=== PATIENT | female | born 1950 | race African-American/Black ===

== ENCOUNTER 2017-01-30 21:51 | Inpatient (IN) | payer OTHER ==
--- NOTE | ~2017-01-30 | DS ---
Discharge Summary [facility] [address] [facility] [place]. [address] NAME: ISELA WALTON : 48 STATUS : DIS Zenon PAT#: [id number] AGE: 66 ADM/REG DATE : 01/30/17 MR#: [id number] REPORT SERV DATE: 02/05/17 DICTATED BY: VICKI HANLEY DATE: 02/04/17 REPORT STATUS : Draft TRANSCRIBED BY: MODChiqui DATE: 02/04/17 ADMISSION DATE: 01/30/2017 DISCHARGE DATE: 02/04/2017 CONSULTATION: 1. General Surgery, Dr. Wilmer Silveira. 2. Dr. Carson Mejia. 3. [facility]. PROCEDURES: Left dorsal foot blister, which was drained, dressed, and clean dressing applied. DISCHARGE DIAGNOSES: 1. Left dorsal foot blister. 2. Left total cellulitis. 3. Acute kidney injury on chronic kidney disease stage 3. 4. Nephrolithiasis. 5. Hypertension. 6. Diabetes mellitus. 7. Hyperlipidemia. 8. Chronic back pain. 9. Diastolic heart failure. 10.History of cerebrovascular accident. 11.Rheumatoid arthritis. 12.Lupus erythematosus. 13.Fibromuscular dysplasia. DISCHARGE CONDITION: Stable. HISTORY OF PRESENT ILLNESS: In summary, this is a 66-year-old female with medical history of insulin-dependent diabetes mellitus type 2, chronic kidney disease stage 3, hypertension, hyperlipidemia, who presented to the hospital with left third toe pain and left dorsal foot blister. In the ER, vital signs, temperature was 98.1, pulse was 66, respiratory rate 16, saturating 91% on room air, and blood pressure was 145/68. Physical exam was significant for a 3 x 6 cm blister on the dorsum of the distal portion of the left foot and also noted slightly edematous and erythematous and tender area around the third toe. An assessment of the left third toe cellulitis and left dorsal foot blister as well as acute kidney injury on chronic kidney disease was made in the ER, and the patient was admitted to the Hospitalist Service. HOSPITAL COURSE: 1. Left toe cellulitis with left dorsal foot blister. The patient was started on broad- spectrum antibiotics with vancomycin and Zosyn. The patient's white blood cell gradually trended down back to within normal range. General Surgery was consulted to perform drainage of the left dorsal foot blister with dry dressing applied. The Discharge Summary [facility] [address] [place]. [address] NAME: ISELA WALTON : 49 STATUS : DIS Zenon PAT#: [id number] AGE: 66 ADM/REG DATE : 01/30/17 MR#: [id number] REPORT SERV DATE: 02/05/17 DICTATED BY: VICKI HANLEY DATE: 02/04/17 REPORT STATUS : Draft TRANSCRIBED BY: CHI DATE: 02/04/17 patient was subsequently transitioned from IV antibiotics to p.o. antibiotics and was advised to continue p.o. antibiotics to complete a total of 14 days therapy. The patient was advised to continue wound dressing and follow as instructed. Home health care has been ordered to assist the patient with wound dressing at home. The patient was also advised to follow up with primary care physician within one week of discharge. 2. Acute kidney injury on chronic kidney disease. The patient's creatinine on presentation was 2.9 and last known baseline was 1.3. The patient was started on gentle IV fluids. Nephrology was consulted given the patient's repeated episodes of acute kidney injury. Renal ultrasound was done that shows bilateral stones, which were known obstruction. The patient's creatinine gradually trended down to 2.3 at the time of discharge. The patient was advised to follow up with Nephrology as an outpatient and increased fluid intake. 3. Bilateral nephrolithiasis. The patient had an ultrasound that confirmed the presence of bilateral renal stones which shows the presence of 2 known obstructing stones measuring 7 mm and 6 mm in the right kidney. Nephrology was consulted. Recommended to continue IV fluid hydration and order a repeat CT. The CT of the abdomen was done that showed the stone had been reduced in size to 2 mm. Continue medical therapy given patient's comorbities at the time of presentation and also given the significantly improved renal function. The patient was advised to continue follow up with Nephrology as an outpatient and to follow up with primary physician. 4. Diabetes mellitus. The patient's blood sugar was controlled throughout the course of this admission with subcutaneous insulin. The patient was advised to continue home dose of insulin at the time of discharge. 5. Lupus erythematosus. No evidence of acute flare during the course of this admission. C3-C4 ESR and CRP were essentially within normal range. The patient was advised to continue follow up with her primary dough raiser as an outpatient. IMAGING: Renal ultrasound. Impression: 1. Two small cysts and 2 obstructing the right kidney. (inaudible) old hematoma. CT abdomen and pelvis. Impression: 1. The patient has borderline retroperitoneal and gastrohepatic ligament adenopathy. The findings were significant. Correlation with patient's clinical history and laboratory values is needed. The length of lymph node is 1.7 x 1.5 cm. 2. Banal appearing thick lesion with .. DISCHARGE MEDICATIONS: 1. Doxycycline 100 mg p.o. b.i.d. 2. Levofloxacin 500 mg p.o. q.24 hours. 3. Aspirin 81 mg. 4. Lipitor 10 mg p.o. daily. 5. Coreg 25 mg p.o. b.i.d. 6. Gabapentin 600 mg t.i.d. 7. Hydrocodone 5/325 p.o. b.i.d. 8. Procardia XL 60 mg p.o. t.i.d. 9. Levemir 40 units subcu b.i.d. 10.Insulin FlexPen. Discharge Summary [address] [address] NAME: ISELA WALTON : 49 STATUS : DIS Zenon PAT#: [id number] AGE: 66 ADM/REG DATE : 01/30/17 MR#: [id number] REPORT SERV DATE: 02/05/17 DICTATED BY: VICKI HANLEY DATE: 02/04/17 REPORT STATUS : Draft TRANSCRIBED BY: MODL DATE: 02/04/17 11.Hydrocodone. 12.Saccharomyces. DISCHARGE FOLLOWUP: 1. To follow up with primary care physician within one to two weeks of discharge. 2. To follow up with Nephrology with one to two weeks of discharge as outpatient. DISCHARGE ACTIVITY: As tolerated. DISCHARGE DIET: 1800 calorie diet. DONO/KAYLEEL Vicki Hanley MD / [id number] CC: MD Charan Stanford MD
--- NOTE | ~2017-01-30 | CN ---
Consultation Report [facility] [address] [facility] [place]. [address] NAME: ISELA WALTON : 48 STATUS : ADM Zenon PAT#: [id number] AGE: 66 ADM/REG DATE : 01/30/17 MR#: [id number] REPORT SERV DATE: 02/02/17 DICTATED BY: LD MEJIA DATE: 02/02/17 REPORT STATUS : Draft TRANSCRIBED BY: MODL DATE: 02/02/17 CONSULTATION DATE OF CONSULTATION: 01/31/2017 REASON FOR CONSULTATION: Nephrolithiasis. HISTORY OF PRESENT ILLNESS: Ms. Walton is a very pleasant 66-year-old female with a history of diabetes, CKD, as well as other comorbidities. She is admitted for a toe cellulitis. As part of her workup for her CKD, she had a renal ultrasound, which showed no hydronephrosis, but some small stones on the right side. She has a history of kidney stones. She has no flank pain. I have been asked to consult given these kidney stones. PAST MEDICAL HISTORY: Insulin-dependent diabetes, hypertension, hyperlipidemia, chronic back pain, degenerative disk disease, diastolic dysfunction, history of stroke, CKD, rheumatoid arthritis, lupus, fibromuscular dysplasia. PAST SURGICAL HISTORY: Left femur ORIF, bilateral total knee replacement, partial thyroidectomy. ALLERGIES: NO KNOWN DRUG ALLERGIES. MEDICATIONS: Reviewed and are on the chart. SOCIAL HISTORY: No smoking, drinking, or illegal drugs. FAMILY HISTORY: Noncontributory. REVIEW OF SYSTEMS: A 12-point review of systems was performed. Pertinent positives are listed in the HPI. PHYSICAL EXAMINATION: VITAL SIGNS: Temperature is 97.3, pulse is in 60s to 70s, blood pressure is in the 130s over 80s, saturating 93% on room air. GENERAL: She is in no acute distress. She appears her stated age. HEENT: Head is normocephalic and atraumatic. LUNGS: Breathing is nonlabored. She is not in respiratory distress. CARDIAC: Pulse is regular in rate and rhythm. ABDOMEN: Soft, nontender, nondistended. There is no CVA tenderness. NEUROLOGIC: She is alert and oriented x3. EXTREMITIES: There is no cyanosis or edema. LABORATORY DATA: White count is 9.8, hemoglobin 10.1. Creatinine is 2.9. Consultation Report [facility] [address] [place]. [address] NAME: ISELA WALTON : 49 STATUS : ADM Zenon PAT#: [id number] AGE: 66 ADM/REG DATE : 01/30/17 MR#: [id number] REPORT SERV DATE: 02/02/17 DICTATED BY: LD MEJIA DATE: 02/02/17 REPORT STATUS : Draft TRANSCRIBED BY: MODL DATE: 02/02/17 IMAGING: Ultrasound was performed of the kidneys. There is no hydronephrosis. There are two small stones in the right kidney. ASSESSMENT AND PLAN: Ms. Walton has nonobstructing nephrolithiasis, which is asymptomatic at this time. I will order a CT scan without contrast to better understand her renal anatomy and her true stone burden. Likely, she will need to follow up with me as an outpatient. Would not recommend aggressively treating these stones given her current medical situation. Please call if further questions. JUNI/CHI Ld Mejia MD / [id number] CC: MD Charan Walker MD
--- NOTE | ~2017-01-30 | CN ---
Consultation Report [facility] [address] [place]. [address] NAME: ISELA WALTON : 48 STATUS : ADM Zenon PAT#: [id number] AGE: 66 ADM/REG DATE : 01/30/17 MR#: [id number] REPORT SERV DATE: 02/02/17 DICTATED BY: DATE: REPORT STATUS : Draft TRANSCRIBED BY: MODL DATE: 02/02/17 CONSULTATION DATE OF CONSULTATION: REASON FOR CONSULTATION: CKD, acute kidney injury. HISTORY OF PRESENT ILLNESS: Ms. Walton is a 66-year-old white female with a history of CKD. We have seen her in the past on several occasions, the last 2013 hospitalization. At that time, her creatinine was 1.7. On review of records, it looks as though recent baseline has been 1.3 to 1.7. She has been here a couple of times recently with acute kidney injury. She is known to have lupus, RA, hypertension, and diabetes. She presented back to the hospital on 01/30 with left toe cellulitis. She has been placed on Bactrim by her PCP. She was found to have a creatinine of 2.9. She has been in the hospital since with vancomycin. Creatinine today is 2.8. She is nonoliguric, she has a Mendieta catheter in place with excellent urine output, her urine is without any protein or blood. Her CT shows nonobstructive stones. She in general feels well. No nausea, vomiting, diarrhea, or constipation. No dysuria or hematuria prior to admission. No problems with edema or shortness of breath. PAST MEDICAL HISTORY: CKD, kidney stones, systemic lupus erythematosus, type 2 diabetes, hypertension, hyperlipidemia, degenerative disk disease, diastolic heart failure, CVA, RA, bilateral knee replacement, partial thyroidectomy. ALLERGIES: NONE. SOCIAL HISTORY: No tobacco, alcohol, or illicit drug use. FAMILY MEDICAL HISTORY: Negative for end-stage renal disease. MEDICATIONS: At time of consultation, aspirin, atorvastatin, Coreg, clonidine, Plavix, B12, gabapentin, heparin, Plaquenil, nifedipine, Zosyn, insulin, and vancomycin. REVIEW OF SYSTEMS: A 12-point review of systems was obtained and negative with the exception of that in the HPI. PHYSICAL EXAMINATION: VITAL SIGNS: Temperature 98.1, blood pressure 124/59, pulse 72, respiratory rate 18, O2 saturation is 92%. GENERAL: This is a pleasant, cooperative, overweight white female. She is awake, alert and oriented x3, in no acute distress. Answers questions appropriately. HEENT: Normocephalic and atraumatic. Conjunctivae clear. Sclerae anicteric. Pupils are equal and round. Oral mucosa is moist. Consultation Report [facility] [address] [place] [address] NAME: ISELA WALTON : 49 STATUS : ADM Zenon PAT#: [id number] AGE: 66 ADM/REG DATE : 01/30/17 MR#: [id number] REPORT SERV DATE: 02/02/17 DICTATED BY: DATE: REPORT STATUS : Draft TRANSCRIBED BY: MODL DATE: 02/02/17 NECK: Supple. Carotids without brisk. Neck veins flat. No lymphadenopathy. LUNGS: Respirations even and unlabored. Breath sounds clear to auscultation. HEART: Rate is regular. Heart tones are distant. I do not hear any murmur, rub, or gallop. ABDOMEN: Obese, soft, nontender. Bowel sounds active. No masses. No hepatosplenomegaly. No bruits. No CVA tenderness. BACK: Within normal limits. EXTREMITIES: Without any edema, cyanosis, or clubbing. SKIN: No unusual rashes. NEURO: No focal deficits. Mood and affect, pleasant and appropriate. PERTINENT LABORATORIES AND X-RAYS: Urine sodium of 35 with a creatinine of 48. Urinalysis, no protein and no blood. WBCs 8.2, H and H 9 and 27, platelets 178,000. Sodium 140, potassium 4.3, chloride 107, CO2 of 26, BUN 55, creatinine of 2.8, calcium 9, magnesium 2.1, albumin of 2.5. IMPRESSION: 1. Acute kidney injury. 2. Chronic kidney disease stage 3. 3. Left toe cellulitis. 4. Systemic lupus erythematosus. 5. Rheumatoid arthritis. 6. Type 2 diabetes. PLAN/RECOMMENDATIONS: Acute kidney injury on CKD, agreed it is probably the Bactrim that has been held. She has also had her Diovan held. Her last dose of Bactrim was 01/30/2017. She has a Mendieta and she has excellent urine output, no need for dialysis. I suspect the kidney function will improve over the next couple of days. We will follow labs and be glad to see this patient in CKD Clinic. Avoid nephrotoxins. I would peyton her chart allergic to Bactrim. We will follow along with you, thank you for the consultation. KARYNA/CHI DARRELL De Leon / [id number] CC: MD Charan Stanford MD
--- NOTE | ~2017-01-30 | HP ---
History And Physical [facility] [address] [facility] [place]. [address] NAME: ISELA WALTON : 49 STATUS : ADM Zenon PAT#: [id number] AGE: 66 ADM/REG DATE : 01/30/17 MR#: [id number] REPORT SERV DATE: 01/31/17 DICTATED BY: GRACIELA RODRIGUEZ DATE: 01/31/17 REPORT STATUS : Draft TRANSCRIBED BY: MODL DATE: 01/31/17 DATE OF ADMISSION: 01/30/2017 POINT OF ENTRY: [facility] Emergency Department. PRIMARY CARE PHYSICIAN: Dr. Charan Khalil. CHIEF COMPLAINT: Left third toe cellulitis. HISTORY OF PRESENT ILLNESS: Ms. Walton is a 66-year-old female with a history of insulin- dependent diabetes mellitus type 2, chronic kidney disease stage III, as well as hypertension and hyperlipidemia, who presents to the emergency room today with an approximate two-week history of left third toe cellulitis. The patient states that she suffered some trauma to the left foot, primarily the third toe about three weeks ago. About one week later, she started to notice some redness, pain, tenderness, as well as swelling, primarily of the left third toe. Shortly after that, she started to develop a blister over the dorsal aspect of the third toe that is progressively becoming larger and larger. She saw her primary care physician, Dr. Charan Khalil, and he placed her on Bactrim, which she began about five or six days ago. She denies any fevers; denies any spread of the redness, swelling, or tenderness to any other areas of the toe; denies any skin breakdown, ulceration, or purulent drainage. Initial evaluation in the emergency department was notable for a white count that was within normal limits. Vital signs were stable. She was afebrile. She was noted to have an elevated BUN and creatinine over her baseline consistent with rmmbq-wv-gqynfbe kidney disease. She was subsequently admitted to the Hospitalist Service for further evaluation and management. REVIEW OF SYSTEMS: Comprehensive review of systems otherwise negative unless listed in history of present illness. PREVIOUS MEDICAL HISTORY: 1. Insulin-dependent diabetes mellitus type 2, hemoglobin A1c of 9.8. 2. Hypertension. 3. Hyperlipidemia. 4. Chronic lower back pain. 5. Degenerative disc disease. 6. Diastolic dysfunction with LVH. 7. History of right cuevas radiata cerebrovascular accident. 8. Chronic kidney stage III, baseline creatinine 1.7. 9. Rheumatoid arthritis. 10.Lupus. 11.Concern for fibromuscular dysplasia by recent MRA imaging. History And Physical [address] [place]. [address] NAME: ISELA WALTON : 49 STATUS : ADM Zenon PAT#: [id number] AGE: 66 ADM/REG DATE : 01/30/17 MR#: [id number] REPORT SERV DATE: 01/31/17 DICTATED BY: GRACIELA RODRIGUEZ DATE: 01/31/17 REPORT STATUS : Draft TRANSCRIBED BY: CHI DATE: 01/31/17 SURGICAL HISTORY: 1. Left femur ORIF. 2. Bilateral total knee. 3. Partial thyroidectomy. ALLERGIES: NO KNOWN DRUG ALLERGIES. HOME MEDICATIONS: Pending at the time of dictation. SOCIAL HISTORY: Denies any tobacco, alcohol, or illicits. FAMILY MEDICAL HISTORY: Diabetes and hypertension. LABS AND IMAGIN. White count is 9.8, hemoglobin is 10.1, hematocrit is 31.7, and platelets are 172. 2. Sodium is 144, potassium is 4, chloride is 107, carbon dioxide is 29, BUN is 48, creatinine is 2.91, glucose is 107, calcium is 9.2. 3. Left foot x-ray per my review shows no acute fracture or dislocation. No evidence of any bony destruction. Formal radiology report is pending at the time of dictation. PHYSICAL EXAMINATION: VITAL SIGNS: Temperature is 98.1 degrees Fahrenheit, pulse is 66, respirations are 22, saturating 91% on room air, blood pressure is 145/68. GENERAL: The patient is awake, alert, in no acute distress. Resting comfortably in bed. She is a well-developed, well-nourished, -Welsh female. HEENT: Atraumatic and normocephalic. Slightly dry mucous membranes. Pupils are equal, round, reactive to light and accommodation. Extraocular eye movements are intact. No scleral icterus. NECK: No jugular venous distention. No carotid bruits. CARDIAC: Regular rate and rhythm. No murmurs or gallops. Normal S1 and S2. LUNGS: Clear to auscultation bilaterally. No wheezes, rhonchi, or crackles. ABDOMEN: Soft, nontender, nondistended. Good bowel sounds. No rebound, guarding, or rigidity. EXTREMITIES: Left lower extremity around the area of the third toe is slightly edematous, erythematous, and tender to the touch. Over the dorsal aspect of the third toe and extending into the distal portion of the forefoot, there is a large approximate 3 x 6 cm blister, which appears to be containing serous fluid. There is no apparent skin ulceration or purulent drainage. There is no evidence of any lymphangitic spread either. SKIN: Warm and dry except for noted above. PSYCH: Affect appropriate. NEURO: Alert and oriented x3. Cranial nerves II through XII are grossly intact. Speech is normal. Gait is not assessed. ASSESSMENT AND PLAN: Ms. Walton is a 66-year-old female, who presents with an approximate two-week history of left third toe cellulitis and also incidentally found to have acute-on- chronic kidney disease stage III. History And Physical [address] [address] NAME: ISELA WALTON : 48 STATUS : ADM Zenon PAT#: [id number] AGE: 66 ADM/REG DATE : 01/30/17 MR#: [id number] REPORT SERV DATE: 01/31/17 DICTATED BY: GRACIELA RODRIGUEZ DATE: 01/31/17 REPORT STATUS : Draft TRANSCRIBED BY: CHI DATE: 01/31/17 PROBLEM LIST: 1. Left third toe cellulitis. 2. Acute kidney injury on chronic kidney disease stage III. 3. Insulin-dependent diabetes mellitus type 2. PLAN: 1. Left third toe cellulitis. She appears to have failed outpatient therapy as she has been on oral Bactrim now for five or six days. Continues to have erythema and redness of the left third toe as well as a large blister. I do not appreciate any clinical evidence of osteomyelitis as there is no skin breakdown or ulceration. Regardless, we will check an ESR and CRP, follow up formal radiology report of the x-ray. We will place on IV vancomycin and consult Wound Care for assistance. Blood cultures have been obtained. We will try to obtain wound cultures as well. 2. Acute kidney injury on chronic kidney disease stage III. We suspect that her elevated creatinine over her recent baseline secondary to recent Bactrim administration as well as possible stress from the patient's underlying infection. We will hold all nephrotoxic medications, provide IV fluid hydration, check urine lytes to calculate a FENa, as well as check a renal ultrasound. 3. Insulin-dependent diabetes mellitus type 2. We will continue the patient's home long- acting insulin. Once confirmed, place her on a level 2 insulin sliding scale. 4. DVT prophylaxis. Heparin subcu given reduced GFR. CODE STATUS: The patient wishes to be full code. JCB/MODL Graciela Rodriguez MD / [id number] CC: Charan Khalil MD
--- NOTE | ~2017-01-30 | CN ---
Consultation Report [facility] [address] [place]. [address] NAME: ISELA WALTON : 48 STATUS : ADM Zenon PAT#: [id number] AGE: 66 ADM/REG DATE : 01/30/17 MR#: [id number] REPORT SERV DATE: 02/01/17 DICTATED BY: WILMER JACQUES DATE: 02/01/17 REPORT STATUS : Draft TRANSCRIBED BY: MODChiqui DATE: 02/01/17 DATE OF CONSULTATION: 02/01/2017 HISTORY OF PRESENT ILLNESS: This pleasant 66-year-old female presents with a history of left third toe cellulitis after trauma to the foot. She had progressive redness and swelling and now has a large blister over the dorsal aspect of the forefoot. There is no redness. She has been treated as an outpatient on Bactrim. There is no bulla or crepitance to suggest acute infection or inflammation. She was admitted to the hospital, and I was asked to see the patient for this blister. PAST MEDICAL HISTORY: 1. Insulin-dependent diabetes mellitus type 2 with hemoglobin A1c of 9.8. 2. Hypertension. 3. Hyperlipidemia. 4. Chronic back pain. 5. Degenerative disk disease. 6. Rheumatoid arthritis. 7. History of lupus. PAST SURGICAL HISTORY: Bilateral knee surgeries, femur ORIF, and a thyroidectomy. ALLERGIES: NO KNOWN DRUG ALLERGIES. MEDICATIONS: Please see hospital chart. SOCIAL HISTORY: The patient denies alcohol, tobacco, or illicit drug usage. FAMILY HISTORY: Positive for hypertension and diabetes. LABORATORY DATA: White blood cell count is within normal limit. X-rays of the left foot reveals no fracture, dislocation, or bony distension. PHYSICAL EXAMINATION: GENERAL: A well-developed obese female in no apparent distress. NECK: Supple. No adenopathy. CARDIOVASCULAR: Regular rate and rhythm. RESPIRATORY: Clear to auscultation. ABDOMEN: Obese, soft, nondistended, and nontender. BACK: No CVA tenderness. EXTREMITIES: The patient has incisions that are well-healed on both knees. She has lipodermatosclerosis consistent with long-standing venous hypertension. She has a left dorsal foot blister with no redness, swelling, or pain. ASSESSMENT: Consultation Report [facility] [address] [facility] [place]. [address] NAME: ISELA WALTON : 48 STATUS : ADM Zenon PAT#: [id number] AGE: 66 ADM/REG DATE : 01/30/17 MR#: [id number] REPORT SERV DATE: 02/01/17 DICTATED BY: WILMER JACQUES DATE: 02/01/17 REPORT STATUS : Draft TRANSCRIBED BY: CHI DATE: 02/01/17 1. Left dorsal foot blister. 2. Multiple medical problems. PLAN: We will drain the blister, dress the wound, and this can be treated on an outpatient basis from a surgical standpoint. There is no surgical indication to be admitted. /CHI Wilmer Jacques M.D. / [id number] CC: MD Charan Stanford MD
[~2017-01-30 21:51] MED LIST: ACET500CAP PO; ASAB PO; COREG25 PO; DIOVAN HCT320 MG/25 PO; JANUVIA100 MG PO; LEVEMIR SC; LIPITOR10 PO; LIPITOR20 PO; MAG6464 MG PO; NEUR600 PO; NORCO1 TA1 PO; NORV10 PO; NOVOPEN SC; PLAQ200B PO; PLAVIX PO; SLOWMAG PO; SPIRO25 PO; STARLIX120 PO; STOOL SOFTEN240 MG PO; VITAMIN D2000 UNIT PO; VITAMIN D31000 UNIT PO
[2017-01-31 04:04] LABS: BASOPHILS 0.1 %; BASOPHILS ABSOLUTE 0.01 10/3/uL (0.0-0.16); ER CBC TAT 0 Hrs 07 Mins; HEMATOCRIT 31.7 % (36.0-48.0); HEMOGLOBIN 10.1 g/dL (12.0-16.0); IMMATURE GRANULOCYTES 0.2 %; IMMATURE GRANULOCYTES ABSOLUTE 0.02 10/3/uL (0.0-0.11); LYMPHOCYTES 12.1 %; LYMPHOCYTES ABSOLUTE 1.18 10/3/uL (0.67-4.30); MEAN CORPUS HGB CONC 31.9 g/dL (32.0-36.0); MEAN CORPUSCULAR HEMOGLOB 27.4 pg (26.0-34.0); MEAN PLATELET VOLUME 10.5 fL (9.2-13.0); MONOCYTES 8.2 %; NEUTROPHILS 77.4 %; NEUTROPHILS ABSOLUTE 7.57 10/3/uL (2.02-8.40); PLATELET COUNT 172 10/3/uL (150-400); RBC DISTRIBUTION WIDTH 14.2 % (12.0-16.0); RED CELL COUNT 3.69 10/6/uL (4.0-5.6); WHITE BLOOD CELLS 9.8 10/3/uL (4.5-10.5)
[2017-01-31 04:05] LABS: MEAN CORPUSCULAR VOLUME 85.9 fL (80-100)
[2017-01-31 04:06] LABS: MANUAL DIFF NO %
[2017-01-31 04:17] LABS: CALCIUM, SERUM 9.2 MG/DL (8.5-10.4); CHLORIDE, SERUM 107 MMOL/L (96-112); CO2 (CARBON DIOXIDE) 29 MMOL/L (24-34); SODIUM, SERUM 144 MMOL/L (135-148)
[2017-01-31 04:18] LABS: BUN (BLOOD UREA NITROGEN) 48 MG/DL (6-23); CREATININE 2.91 MG/DL (0.55-1.02); GFR AFRICAN AMERICAN 19 ML/MIN (>=60); GFR NON AFRICAN AMERICAN 16 ML/MIN (>=60); GLUCOSE, SERUM 107 MG/DL (60-99)
[2017-01-31] MEDS ORDERED: COREG25 PO (05:15)
[2017-01-31] MEDS ORDERED: DIOVAN HCT320 MG/25 PO (05:16)
[2017-01-31] MEDS ORDERED: CAT2 PO (05:17)
[2017-01-31 09:09] LABS: C-REACTIVE PROTEIN 5.1 MG/L (<8.0)
[2017-01-31 16:10] LABS: COMPLEMENT C4 41.1 MG/DL (16-47)
[2017-02-01 07:05] LABS: BASOPHILS 0.3 %; BASOPHILS ABSOLUTE 0.03 10/3/uL (0.0-0.16); EOSINOPHILS 2.1 %; EOSINOPHILS ABSOLUTE 0.24 10/3/uL (0.0-0.53); HEMATOCRIT 32.9 % (36.0-48.0); HEMOGLOBIN 10.7 g/dL (12.0-16.0); IMMATURE GRANULOCYTES 0.3 %; IMMATURE GRANULOCYTES ABSOLUTE 0.03 10/3/uL (0.0-0.11); LYMPHOCYTES 16.4 %; LYMPHOCYTES ABSOLUTE 1.88 10/3/uL (0.67-4.30); MEAN CORPUS HGB CONC 32.5 g/dL (32.0-36.0); MEAN CORPUSCULAR HEMOGLOB 28.2 pg (26.0-34.0); MEAN CORPUSCULAR VOLUME 86.6 fL (80-100); MEAN PLATELET VOLUME 10.7 fL (9.2-13.0); MONOCYTES 7.6 %; MONOCYTES ABSOLUTE 0.87 10/3/uL (0.21-1.20); NEUTROPHILS 73.3 %; NEUTROPHILS ABSOLUTE 8.44 10/3/uL (2.02-8.40); PLATELET COUNT 205 10/3/uL (150-400); RBC DISTRIBUTION WIDTH 14.4 % (12.0-16.0); WHITE BLOOD CELLS 11.5 10/3/uL (4.5-10.5)
[2017-02-01 07:10] LABS: MANUAL DIFF NO %
[2017-02-01 07:11] LABS: ALBUMIN 3.2 G/DL (3.5-5.0); BUN (BLOOD UREA NITROGEN) 48 MG/DL (6-23); CALCIUM, SERUM 9.4 MG/DL (8.5-10.4); CHLORIDE, SERUM 105 MMOL/L (96-112); CO2 (CARBON DIOXIDE) 27 MMOL/L (24-34); CREATININE 2.71 MG/DL (0.55-1.02); GFR AFRICAN AMERICAN 20 ML/MIN (>=60); GFR NON AFRICAN AMERICAN 17 ML/MIN (>=60); POTASSIUM, SERUM 3.8 MMOL/L (3.5-5.3); SODIUM, SERUM 140 MMOL/L (135-148)
[2017-02-01 07:12] LABS: GLUCOSE, SERUM 38 MG/DL (60-99); PHOSPHORUS, SERUM 3.8 MG/DL (2.5-4.5)
[2017-02-01 14:02] LABS: ANA PATTERN SPECKLED
[2017-02-02 06:41] LABS: CHLORIDE, SERUM 107 MMOL/L (96-112); CO2 (CARBON DIOXIDE) 26 MMOL/L (24-34); CREATININE 2.86 MG/DL (0.55-1.02); GFR AFRICAN AMERICAN 19 ML/MIN (>=60); GFR NON AFRICAN AMERICAN 16 ML/MIN (>=60); PHOSPHORUS, SERUM 3.7 MG/DL (2.5-4.5); POTASSIUM, SERUM 4.3 MMOL/L (3.5-5.3); SODIUM, SERUM 140 MMOL/L (135-148)
[2017-02-02 06:44] LABS: ALBUMIN 2.5 G/DL (3.5-5.0); BUN (BLOOD UREA NITROGEN) 55 MG/DL (6-23); GLUCOSE, SERUM 134 MG/DL (60-99)
[2017-02-02 06:55] LABS: BASOPHILS 0.4 %; BASOPHILS ABSOLUTE 0.03 10/3/uL (0.0-0.16); EOSINOPHILS 3.1 %; EOSINOPHILS ABSOLUTE 0.25 10/3/uL (0.0-0.53); HEMOGLOBIN 9.2 g/dL (12.0-16.0); IMMATURE GRANULOCYTES 0.2 %; IMMATURE GRANULOCYTES ABSOLUTE 0.02 10/3/uL (0.0-0.11); LYMPHOCYTES 18.8 %; LYMPHOCYTES ABSOLUTE 1.53 10/3/uL (0.67-4.30); MEAN CORPUS HGB CONC 33.2 g/dL (32.0-36.0); MEAN CORPUSCULAR HEMOGLOB 28.3 pg (26.0-34.0); MEAN CORPUSCULAR VOLUME 85.2 fL (80-100); MEAN PLATELET VOLUME 10.8 fL (9.2-13.0); MONOCYTES ABSOLUTE 0.65 10/3/uL (0.21-1.20); NEUTROPHILS 69.5 %; NEUTROPHILS ABSOLUTE 5.67 10/3/uL (2.02-8.40); PLATELET COUNT 178 10/3/uL (150-400); RBC DISTRIBUTION WIDTH 14.2 % (12.0-16.0); RED CELL COUNT 3.25 10/6/uL (4.0-5.6); WHITE BLOOD CELLS 8.2 10/3/uL (4.5-10.5)
[2017-02-02 06:56] LABS: HEMATOCRIT 27.7 % (36.0-48.0); MANUAL DIFF NO %
[2017-02-02 09:57] LABS: ASCORBIC ACID (UR NOT ORDER) NEG (NEG); BILIRUBIN, URINE NEGATIVE (NEG); KETONE, URINE NEGATIVE (NEG); LEUKOCYTE ESTERASE(NOT OR NEG (NEG); WBC (NOT ORDERED) (RFLEX) < 1 (0-5)
[2017-02-02 10:15] LABS: CREATININE, URINE 48.4 MG/DL
[2017-02-03 04:40] LABS: BASOPHILS 0.3 %; BASOPHILS ABSOLUTE 0.03 10/3/uL (0.0-0.16); EOSINOPHILS 3.2 %; EOSINOPHILS ABSOLUTE 0.29 10/3/uL (0.0-0.53); HEMATOCRIT 27.7 % (36.0-48.0); HEMOGLOBIN 8.9 g/dL (12.0-16.0); IMMATURE GRANULOCYTES 0.1 %; IMMATURE GRANULOCYTES ABSOLUTE 0.01 10/3/uL (0.0-0.11); LYMPHOCYTES 14.9 %; LYMPHOCYTES ABSOLUTE 1.33 10/3/uL (0.67-4.30); MEAN CORPUS HGB CONC 32.1 g/dL (32.0-36.0); MEAN CORPUSCULAR HEMOGLOB 27.2 pg (26.0-34.0); MEAN CORPUSCULAR VOLUME 84.7 fL (80-100); MEAN PLATELET VOLUME 10.6 fL (9.2-13.0); MONOCYTES 11.3 %; MONOCYTES ABSOLUTE 1.01 10/3/uL (0.21-1.20); NEUTROPHILS 70.2 %; NEUTROPHILS ABSOLUTE 6.27 10/3/uL (2.02-8.40); PLATELET COUNT 164 10/3/uL (150-400); RBC DISTRIBUTION WIDTH 14.1 % (12.0-16.0); RED CELL COUNT 3.27 10/6/uL (4.0-5.6); WHITE BLOOD CELLS 8.9 10/3/uL (4.5-10.5)
[2017-02-03 04:44] LABS: MANUAL DIFF NO %
[2017-02-03 04:46] LABS: ALBUMIN 2.5 G/DL (3.5-5.0); CALCIUM, SERUM 8.8 MG/DL (8.5-10.4); CHLORIDE, SERUM 109 MMOL/L (96-112); CO2 (CARBON DIOXIDE) 25 MMOL/L (24-34); CREATININE 2.94 MG/DL (0.55-1.02); GFR AFRICAN AMERICAN 18 ML/MIN (>=60); GFR NON AFRICAN AMERICAN 16 ML/MIN (>=60); GLUCOSE, SERUM 114 MG/DL (60-99); PHOSPHORUS, SERUM 3.8 MG/DL (2.5-4.5); POTASSIUM, SERUM 4.7 MMOL/L (3.5-5.3); SODIUM, SERUM 141 MMOL/L (135-148); VANCOMYCIN TROUGH 12.5 MCG/ML (10.0-20.0)
[2017-02-03 04:47] LABS: BUN (BLOOD UREA NITROGEN) 59 MG/DL (6-23)
[2017-02-04 08:02] LABS: BASOPHILS 0.2 %; BASOPHILS ABSOLUTE 0.02 10/3/uL (0.0-0.16); EOSINOPHILS 2.6 %; EOSINOPHILS ABSOLUTE 0.26 10/3/uL (0.0-0.53); HEMATOCRIT 27.2 % (36.0-48.0); HEMOGLOBIN 8.9 g/dL (12.0-16.0); IMMATURE GRANULOCYTES 0.2 %; IMMATURE GRANULOCYTES ABSOLUTE 0.02 10/3/uL (0.0-0.11); LYMPHOCYTES 15.1 %; LYMPHOCYTES ABSOLUTE 1.53 10/3/uL (0.67-4.30); MEAN CORPUS HGB CONC 32.7 g/dL (32.0-36.0); MEAN CORPUSCULAR HEMOGLOB 28.3 pg (26.0-34.0); MEAN CORPUSCULAR VOLUME 86.3 fL (80-100); MONOCYTES 12.4 %; MONOCYTES ABSOLUTE 1.25 10/3/uL (0.21-1.20); NEUTROPHILS 69.5 %; NEUTROPHILS ABSOLUTE 7.03 10/3/uL (2.02-8.40); PLATELET COUNT 161 10/3/uL (150-400); RBC DISTRIBUTION WIDTH 14.2 % (12.0-16.0); RED CELL COUNT 3.15 10/6/uL (4.0-5.6); WHITE BLOOD CELLS 10.1 10/3/uL (4.5-10.5)
[2017-02-04 08:03] LABS: MANUAL DIFF NO %
[2017-02-04 08:17] LABS: ALBUMIN 2.5 G/DL (3.5-5.0); CALCIUM, SERUM 8.6 MG/DL (8.5-10.4); CHLORIDE, SERUM 111 MMOL/L (96-112); CO2 (CARBON DIOXIDE) 23 MMOL/L (24-34); PHOSPHORUS, SERUM 3.3 MG/DL (2.5-4.5); POTASSIUM, SERUM 4.3 MMOL/L (3.5-5.3); SODIUM, SERUM 143 MMOL/L (135-148)
[2017-02-04 08:18] LABS: BUN (BLOOD UREA NITROGEN) 46 MG/DL (6-23); CREATININE 2.39 MG/DL (0.55-1.02); GFR AFRICAN AMERICAN 24 ML/MIN (>=60); GFR NON AFRICAN AMERICAN 20 ML/MIN (>=60); GLUCOSE, SERUM 54 MG/DL (60-99)
[2017-02-04] MEDS ORDERED: LEVAQUIN5T PO (15:29)
[2017-02-04] MEDS ORDERED: MONODOX100 MG PO (15:29)
[2017-02-04] MEDS ORDERED: NXL6 PO (15:30)
[2017-02-04] MEDS ORDERED: FLORASTOR250 MG PO (15:32)
[2017-02-22] MEDS ORDERED: NORV10 PO (19:14)
[2017-02-22] MEDS ORDERED: ASAB PO (19:17)
[2017-02-22] MEDS ORDERED: COREG25 PO (19:17)
[2017-02-22] MEDS ORDERED: LIPITOR10 PO (19:17)
[2017-02-22] MEDS ORDERED: PLAVIX PO (19:18)
[2017-02-22] MEDS ORDERED: CAT2 PO (19:18)
[2017-02-22] MEDS ORDERED: NEUR600 PO (19:18)
[2017-02-22] MEDS ORDERED: NOVOPEN SC (19:19)
[2017-02-22] MEDS ORDERED: TRESIBA FL100 UNIT/1 SQ (19:22)
[2017-02-22] MEDS ORDERED: PLAQ200B PO (19:23)
== END 2017-02-04 16:55 | disposition home health service (06) | DRG 603 ==
LOC: ER 21:51 → 2SO 23:59
PROVIDERS: Hospitalist; Specialist
DX: L03.032 Cellulitis of left toe (principal); I50.32 Chronic diastolic (congestive) heart failure; M32.9 Systemic lupus erythematosus, unspecified; N18.3 Chronic kidney disease, stage 3 (moderate); I13.0 Hypertensive heart and chronic kidney disease with heart failure and stage 1 through stage 4 chronic kidney disease, or unspecified chronic kidney disease; E11.22 Type 2 diabetes mellitus with diabetic chronic kidney disease; Z23 Encounter for immunization; S90.822A Blister (nonthermal), left foot, initial encounter; E78.5 Hyperlipidemia, unspecified; M06.9 Rheumatoid arthritis, unspecified; N20.0 Calculus of kidney; M54.5 Low back pain; Z96.653 Presence of artificial knee joint, bilateral; G89.29 Other chronic pain; Z86.73 Personal history of transient ischemic attack (TIA), and cerebral infarction without residual deficits
CPT/HCPCS: 73630-LT; 73718-LT; 74176; 76775; 80048; 80069; 80202; 81001; 82570; 82947; 82962; 83735; 83935; 84300; 85025; 85652; 86039; 86140; 86160; 86225; 87040; 89190; 90662; 99285; A9270-GY; G0008; J2543; J3370

== ENCOUNTER 2017-02-22 19:28 | Inpatient (IN) | payer OTHER ==
--- NOTE | ~2017-02-22 | HP ---
History And Physical [id number] [place]. [address] NAME: ISELA WALTON : 48 STATUS : ADM IN [facility]#: [id number] AGE: 66 ADM/REG DATE : 02/22/17 MR#: [id number] REPORT SERV DATE: 02/23/17 DICTATED BY: RADHA JACKSON DATE: 02/22/17 REPORT STATUS : Draft TRANSCRIBED BY: CHI DATE: 02/22/17 DATE OF ADMISSION: 02/22/2017 CHIEF COMPLAINT: Blood in stool. HISTORY OF PRESENT ILLNESS: This is a 66-year-old female recently discharged from the hospital on 02/04/[address] Retana for left dorsal foot blister and cellulitis being treated as an outpatient by skin specialist, Dr. Silveira. The patient is also receiving home health with Wound Care as well. The patient states she was seen by her Wound Care nurse and was told that she had a low blood count. Also, the patient states that she has been experiencing diarrhea for several days and recently has been on antibiotics. According to the discharge summary was on Levaquin and doxycycline. The patient states that her diarrhea is loose to watery and later developed some blood in stools which she describes as half a teaspoon in her stool. She has had some shortness of breath. Denies any cough. No subjective fever or chills. She was seen in the ER by Dr. Silva and found to be hypoxic with O2 saturation of 77%, placed on oxygen. She had a chest x-ray with some bilateral basilar infiltrates. He initiated antibiotics for suspected underlying pneumonia and then placed the patient on oxygen as well. She is currently on 3.5 L, saturating at 99%. The patient denies any chest pain. REVIEW OF SYSTEMS: Please refer to HPI. PAST MEDICAL HISTORY: Insulin-dependent diabetes, hypertension, diastolic CHF per chart. Also history of CVA with some left lower extremity weakness, CKD stage 3, rheumatoid arthritis, lupus, hyperlipidemia, degenerative joint disease, and left foot ulcer. PAST SURGICAL HISTORY: Bilateral total knee, partial thyroidectomy, and left femur surgery with ORIF. ALLERGIES: NO KNOWN ALLERGIES. SOCIAL HISTORY: No tobacco, alcohol, or illicit drugs. FAMILY HISTORY: Hypertension. HOME MEDICATIONS: Amlodipine 10 mg p.o. daily, aspirin 81 mg p.o. daily, Lipitor 10 mg p.o. at bedtime, Coreg 25 mg p.o. b.i.d., clonidine 0.2 mg p.o. b.i.d. p.r.n., Plavix 75 mg p.o. daily, Neurontin 600 mg p.o. t.i.d., Plaquenil 200 mg p.o. daily, NovoLog FlexPen 15 units subcu with breakfast and supper, and Tresiba 40 units subcu daily. PHYSICAL EXAMINATION: VITAL SIGNS: The patient is afebrile. Blood pressure 154/83, pulse of 99, saturating 97% on 3.5 L, and temp of 98.2. GENERAL: The patient is alert and oriented x3, currently in no distress, obese. HEENT EXAM: Pupils equal, round, and reactive to light. Extraocular muscles are intact with History And Physical [address] [address] NAME: ISELA WALTON : 48 STATUS : ADM IN [facility]#: [id number] AGE: 66 ADM/REG DATE : 02/22/17 MR#: [id number] REPORT SERV DATE: 02/23/17 DICTATED BY: RADHA JACKSON DATE: 02/22/17 REPORT STATUS : Draft TRANSCRIBED BY: CHI DATE: 02/22/17 moist mucous membranes. CARDIOVASCULAR: S1, S2. Regular rate and rhythm. No appreciated rubs or gallops. No appreciated JVD. RESPIRATORY: Clear to auscultation bilaterally with some decreased breath sounds at the lower bases due to body habitus. No wheezing appreciated. No rhonchi. ABDOMEN: Positive bowel sounds. Soft, nontender. No rebound. No fluid wave. No distention. EXTREMITIES: Bilateral dorsalis pedis pulses bilaterally. Positive 1+ pitting edema with healing dorsal ulcer of the left foot and ulceration of the second and third digit wrapped in gauze. NEUROLOGIC: Cranial nerves II through XII grossly intact. Moves all four extremities. LABORATORY DATA: ABG of pH of 7.43 with pCO2 of 38, PO2 of 46 with FiO2 of 21. Sodium 144, potassium 3.8 with a chloride of 110, bicarb of 28, BUN of 56, creatinine of 2.22 with a glucose of 146. T-bilirubin of 0.8 with an albumin of 3.6, ALT 32, alkaline phosphatase of 244, AST of 24, BNP of 414. White count of 14.2 with a hemoglobin of 9.9, platelet count of 243. INR of 1.3. Chest x-ray with some bibasilar haziness. EKG: Sinus rhythm with ventricular rate of 101, no ST-elevation. ASSESSMENT AND PLAN: 1. Acute hypoxia. 2. Gastrointestinal bleed, mild. 3. Leukocytosis. 4. Fluid overload. 5. Diarrhea. 6. Chronic kidney disease. 7. Possible pneumonia. We will admit to the Hospitalist Service of the patient with some signs of fluid overload. We will give a low dose of Bumex. Also, the patient will be empirically on azithromycin, which is already started by Dr. Silva in the ER. However, we will closely monitor stools and check stools for C. difficile. If positive, further changes will need to be made with the medication. Also, we will follow up with blood cultures and check urinalysis. We will continue with bronchodilators as well as incentive spirometer and also consult GI for GI bleed workup. The patient will be admitted to my colleague who will attend to this patient's care. ALDO/CHI Radha Jackson M.D. History And Physical [address] [address] NAME: ISELA WALTON : 48 STATUS : ADM IN [facility]#: [id number] AGE: 66 ADM/REG DATE : 02/22/17 MR#: [id number] REPORT SERV DATE: 02/23/17 DICTATED BY: RADHA JACKSON DATE: 02/22/17 REPORT STATUS : Draft TRANSCRIBED BY: CHI DATE: 02/22/17 / [id number] CC: Charan Khalil MD
--- NOTE | ~2017-02-22 | DS ---
Discharge Summary [facility] [address] [place]. [address] NAME: ISELA WALTON : 48 STATUS : DIS IN PAT#: [id number] AGE: 66 ADM/REG DATE : 02/22/17 MR#: [id number] REPORT SERV DATE: 02/28/17 DICTATED BY: DATE: REPORT STATUS : Draft TRANSCRIBED BY: MODL DATE: 02/27/17 ADMISSION DATE: 02/22/2017 DISCHARGE DATE: 02/27/2017 DISCHARGE DIAGNOSES: 1. Hypoxia. 2. Clostridium difficile colitis. 3. Diabetes mellitus type 2. 4. Hypertension. 5. Acute kidney injury on chronic kidney disease. 6. Heart failure with preserved ejection fraction. 7. Volume overload. 8. Hypoventilation syndrome. 9. Morbid obesity with BMI of 44.2. 10.History of cerebrovascular accident with left-sided weakness in 10/2016. 11.Rheumatoid arthritis. 12.Gait abnormality secondary to wound and cerebrovascular accident. PROCEDURES AND IMAGIN. 02/22/2017, portable chest x-ray showed cardiomegaly with acute moderately severe failure changes. 2. 02/27/2017, chest PA and lateral showed improving CHF. CONSULTATION: Wound Center. HOSPITAL COURSE: This is a pleasant 66-year-old black female, who was recently discharged from the hospital on 02/04/2017 for left dorsal foot blister and cellulitis and has been treating outpatient by replenishment specialist, Dr. Silveira. The patient was also on home health care with wound also. Please see admission H and P by Dr. Nette Gamboa on 02/22/2017. During the patient's stay, she has had severe episodes of diarrhea, which have now resolved to several mildly formed stools daily. The patient's hypoxia has been defined as a need for continuous O2 due to O2 desaturation at rest, which is 82% and when sitting on the side of the bed, it is 88% on room air. The patient will be discharged home with Florastor and vancomycin. Teaching has been given to the patient regarding use of any antibiotics for any reason and that she is to mention to the doctor that she has had kidney disease and diarrhea following antibiotic administration. The patient verbalizes understanding of this. The patient has been well controlled on her home regimen of Levemir for her diabetes mellitus type 2. The patient is still having episodes of hypertension, but with no consistency, but has not required any p.r.n. hydralazine. The patient is on amlodipine as well as carvedilol, hydrochlorothiazide, and p.r.n. clonidine. The patient did have episode of acute kidney injury on existing chronic kidney disease and the patient is approaching baseline creatinine of 1.66. The patient was diuresed due to volume overload and chest x-ray has been improving. The patient missed her appointment with Dr. Ivory yesterday and will attempt to be scheduled later on this week or the beginning of next week. The patient is being given a prescription for Bumex and hydrochlorothiazide. The patient has an appointment to follow up with Wound Care as well as having home health care for her Discharge Summary [address] [address] NAME: ISELA WALTON : 48 STATUS : DIS IN PAT#: [id number] AGE: 66 ADM/REG DATE : 02/22/17 MR#: [id number] REPORT SERV DATE: 02/28/17 DICTATED BY: DATE: REPORT STATUS : Draft TRANSCRIBED BY: MODL DATE: 02/27/17 wounds. The patient has had minimal pain during her stay and has been compliant with activity. The patient has been evaluated by Respiratory Therapy for her acute hypoxia. Of note, the patient has had blood cultures x2 that have been negative during her stay and the patient's EKG was in sinus rhythm. PHYSICAL EXAMINATION: VITAL SIGNS: Blood pressure 185/88, O2 saturation 93% on 2 L nasal cannula, temperature 98.5, heart rate is 75, and respirations are 18. HEENT: Head is atraumatic, normocephalic. Pupils are equal, round, reactive to light and accommodation. Sclera are clear and nonicteric. Nares are patent. NECK: Neck is supple with no obvious thyromegaly or lymphadenopathy. Neck veins are flat. CARDIAC: No obvious murmurs, rubs, or gallops. S1 and S2 present. LUNGS: Decreased in the bases with normal respiratory effort. GI: Abdomen is soft and nontender. Active bowel sounds in all four quadrants. Normal bowel habitus. No palpable organomegaly. EXTREMITIES: The patient has nonpitting edema bilaterally to her knees. Dorsalis pedis and posterior tibial pulses are 1+ bilaterally. The patient has on Tubigrip stockings. The patient has a dressing that is clean, dry, and intact to her left foot. NEURO/PSYCH: The patient is alert and oriented x4, pleasant, and cooperative. Cranial nerves II through XII are grossly intact. The patient has no apparent anxiety or depression. DISCHARGE DIET: 1800-calorie diabetic diet. DISCHARGE MEDICATIONS: Amlodipine 10 mg daily, atorvastatin 10 mg daily, Bumex 0.5 mg daily, carvedilol 25 mg twice daily, Clopidogrel 75 mg daily, Neurontin 600 mg three times daily, hydrochlorothiazide 50 mg daily, Plaquenil 200 mg daily, Levemir 40 units every morning, NovoLog FlexPen 15 units subcutaneously with breakfast and supper as needed, Florastor 250 mg twice daily, [place] 5/325 one tablet q.4 hours p.r.n. pain, aspirin 81 mg daily, vitamin D 2000 units twice daily, Catapres 0.2 mg twice daily. The patient has been instructed to discuss hydrochlorothiazide, Bumex with Dr. Ivory and to use home insulin regimen. ALLERGIES: THE PATIENT IS ALLERGIC TO SULFAMETHOXAZOLE AND TRIMETHOPRIM. DISCHARGE INSTRUCTIONS: The patient is to follow up with Dr. Ivory at the end of this week or the beginning of next week. The patient is to see her PCP in 7 to 10 days and to follow up with Wound Care on Saturday per her scheduled appointment. Should the patient have any more episodes of hypoxia or increased diarrhea, she is to call her PCP or present to the ER. Approximately, 35 minutes has been spent coordinating discharge care of this patient, including [id number] encounter and summarization of the discharge. АЛЕКСАНДР/CHI Discharge Summary [address] [address] NAME: ISELA WALTON : 48 STATUS : DIS IN PAT#: [id number] AGE: 66 ADM/REG DATE : 02/22/17 MR#: [id number] REPORT SERV DATE: 02/28/17 DICTATED BY: DATE: REPORT STATUS : Draft TRANSCRIBED BY: CHI DATE: 02/27/17 y Silverio NP / [id number] CC: MD Charan Mei MD
[2017-02-22 18:38] LABS: ALLENS TEST Pos; BE (BASE EXCESS) 0.5 MEQ/L (0 +/- 2.5); CARBOXYHEMOGLOBIN 1.7 % (0-3); HCO3 (ACTUAL BICARBONATE) 24.6 MEQ/L (23-27); HEMOBLOGIN CONTENT 9.7 G/DL (12-16); INSTRUMENT SERIAL # 8087; METHEMOGLOBIN 0.3 % (0-3); O2 CONTENT 11.1 VOL% (18-24); OPERATOR ID 14335; PCO2 (CO2 TENSION) 38 MMHG (35-45); PO2 (O2 TENSION) 46 MMHG (79-93); SAMPLE Arterial; pH 7.43 (7.37-7.43)
[2017-02-22 18:44] LABS: BASOPHILS 0.2 %; BASOPHILS ABSOLUTE 0.03 10/3/uL (0.0-0.16); EOSINOPHILS 0.9 %; EOSINOPHILS ABSOLUTE 0.13 10/3/uL (0.0-0.53); ER CBC TAT 0 Hrs 05 Mins; HEMATOCRIT 30.5 % (36.0-48.0); HEMOGLOBIN 9.9 g/dL (12.0-16.0); IMMATURE GRANULOCYTES 0.4 %; IMMATURE GRANULOCYTES ABSOLUTE 0.06 10/3/uL (0.0-0.11); LYMPHOCYTES 8.4 %; LYMPHOCYTES ABSOLUTE 1.19 10/3/uL (0.67-4.30); MEAN CORPUS HGB CONC 32.5 g/dL (32.0-36.0); MEAN CORPUSCULAR HEMOGLOB 28.5 pg (26.0-34.0); MEAN CORPUSCULAR VOLUME 87.9 fL (80-100); MONOCYTES 6.6 %; MONOCYTES ABSOLUTE 0.94 10/3/uL (0.21-1.20); NEUTROPHILS 83.5 %; NEUTROPHILS ABSOLUTE 11.81 10/3/uL (2.02-8.40); PLATELET COUNT 243 10/3/uL (150-400); RBC DISTRIBUTION WIDTH 15.5 % (12.0-16.0); RED CELL COUNT 3.47 10/6/uL (4.0-5.6); WHITE BLOOD CELLS 14.2 10/3/uL (4.5-10.5)
[2017-02-22 18:46] LABS: MANUAL DIFF NO %
[2017-02-22 18:53] LABS: INTERNATIONAL NORMAL RATI 1.3 UNITS (-); PROTIME (NOT ORD) 16.4 SEC (12.0-14.5)
[2017-02-22 18:54] LABS: PARTIAL THROMBO TIME 27.6 SEC (22.5-37.2)
[2017-02-22 19:00] LABS: A/G RATIO 0.5 (0.7-1.9); ALBUMIN 3.6 G/DL (3.5-5.0); ALKALINE PHOSPHATASE 244 U/L (45-117); BUN (BLOOD UREA NITROGEN) 56 MG/DL (6-23); CALCIUM, SERUM 9.8 MG/DL (8.5-10.4); CHLORIDE, SERUM 110 MMOL/L (96-112); CO2 (CARBON DIOXIDE) 28 MMOL/L (24-34); CREATININE 2.22 MG/DL (0.55-1.02); GFR AFRICAN AMERICAN 26 ML/MIN (>=60); GFR NON AFRICAN AMERICAN 22 ML/MIN (>=60); GLOBULIN 6.8 G/DL (2.5-4.1); GLUCOSE, SERUM 146 MG/DL (60-99); POTASSIUM, SERUM 3.8 MMOL/L (3.5-5.3); SGOT(AST) 24 U/L (5-40); SGPT(ALT) 32 U/L (5-65); SODIUM, SERUM 144 MMOL/L (135-148); TOTAL BILIRUBIN 0.8 MG/DL (0-1.2); TOTAL PROTEIN 10.4 G/DL (6.0-8.5)
[~2017-02-22 19:28] MED LIST changes: +CAT2 PO; +FLORASTOR250 MG PO; +LEVAQUIN5T PO; +MONODOX100 MG PO; +NXL6 PO; +TRESIBA FL100 UNIT/1 SQ
[2017-02-23 06:35] LABS: BASOPHILS 0.2 %; BASOPHILS ABSOLUTE 0.03 10/3/uL (0.0-0.16); EOSINOPHILS 0.8 %; EOSINOPHILS ABSOLUTE 0.11 10/3/uL (0.0-0.53); HEMOGLOBIN 8.7 g/dL (12.0-16.0); IMMATURE GRANULOCYTES 0.4 %; IMMATURE GRANULOCYTES ABSOLUTE 0.05 10/3/uL (0.0-0.11); LYMPHOCYTES 7.6 %; LYMPHOCYTES ABSOLUTE 1.07 10/3/uL (0.67-4.30); MEAN CORPUSCULAR HEMOGLOB 28.3 pg (26.0-34.0); MEAN CORPUSCULAR VOLUME 88.6 fL (80-100); MEAN PLATELET VOLUME 10.2 fL (9.2-13.0); MONOCYTES 8.6 %; MONOCYTES ABSOLUTE 1.21 10/3/uL (0.21-1.20); NEUTROPHILS 82.4 %; NEUTROPHILS ABSOLUTE 11.64 10/3/uL (2.02-8.40); PLATELET COUNT 224 10/3/uL (150-400); RBC DISTRIBUTION WIDTH 15.6 % (12.0-16.0); RED CELL COUNT 3.07 10/6/uL (4.0-5.6); WHITE BLOOD CELLS 14.1 10/3/uL (4.5-10.5)
[2017-02-23 06:38] LABS: HEMATOCRIT 27.2 % (36.0-48.0); MANUAL DIFF NO %
[2017-02-23 06:51] LABS: CALCIUM, SERUM 9.4 MG/DL (8.5-10.4); CHLORIDE, SERUM 112 MMOL/L (96-112); CO2 (CARBON DIOXIDE) 28 MMOL/L (24-34); CREATININE 1.88 MG/DL (0.55-1.02); GFR AFRICAN AMERICAN 31 ML/MIN (>=60); GFR NON AFRICAN AMERICAN 27 ML/MIN (>=60); GLUCOSE, SERUM 157 MG/DL (60-99); POTASSIUM, SERUM 3.8 MMOL/L (3.5-5.3); SODIUM, SERUM 147 MMOL/L (135-148)
[2017-02-23 06:52] LABS: BUN (BLOOD UREA NITROGEN) 50 MG/DL (6-23)
[2017-02-23 13:10] LABS: BASOPHILS 0.3 %; BASOPHILS ABSOLUTE 0.04 10/3/uL (0.0-0.16); EOSINOPHILS 0.8 %; HEMATOCRIT 25.3 % (36.0-48.0); HEMOGLOBIN 8.1 g/dL (12.0-16.0); IMMATURE GRANULOCYTES 0.3 %; IMMATURE GRANULOCYTES ABSOLUTE 0.04 10/3/uL (0.0-0.11); LYMPHOCYTES 9.3 %; MEAN CORPUSCULAR HEMOGLOB 28.3 pg (26.0-34.0); MEAN CORPUSCULAR VOLUME 88.5 fL (80-100); MONOCYTES 7.2 %; MONOCYTES ABSOLUTE 0.93 10/3/uL (0.21-1.20); NEUTROPHILS 82.1 %; NEUTROPHILS ABSOLUTE 10.55 10/3/uL (2.02-8.40); PLATELET COUNT 196 10/3/uL (150-400); RBC DISTRIBUTION WIDTH 15.6 % (12.0-16.0); RED CELL COUNT 2.86 10/6/uL (4.0-5.6); WHITE BLOOD CELLS 12.9 10/3/uL (4.5-10.5)
[2017-02-23 13:11] LABS: MANUAL DIFF NO %
[2017-02-23 13:25] LABS: BUN (BLOOD UREA NITROGEN) 49 MG/DL (6-23); CALCIUM, SERUM 9.1 MG/DL (8.5-10.4); CHLORIDE, SERUM 114 MMOL/L (96-112); CHOL/HDL RATIO(NOT ORDER) 1.9 (0-5); CHOLESTEROL 107 MG/DL (< 200); CO2 (CARBON DIOXIDE) 28 MMOL/L (24-34); CREATININE 1.95 MG/DL (0.55-1.02); GFR AFRICAN AMERICAN 30 ML/MIN (>=60); GFR NON AFRICAN AMERICAN 26 ML/MIN (>=60); GLUCOSE, SERUM 175 MG/DL (60-99); HDL CHOLESTEROL 55 MG/DL (> 49); LDL CHOLESTEROL 41 MG/DL (< 130); NON-HDL CHOLESTEROL 52 MG/DL (< 160); POTASSIUM, SERUM 3.9 MMOL/L (3.5-5.3); SGOT(AST) 20 U/L (5-40); SGPT(ALT) 25 U/L (5-65); SODIUM, SERUM 149 MMOL/L (135-148); TOTAL BILIRUBIN 0.4 MG/DL (0-1.2); TOTAL PROTEIN 8.5 G/DL (6.0-8.5); TRIGLYCERIDE 59 MG/DL (< 150)
[2017-02-23 13:26] LABS: A/G RATIO 0.5 (0.7-1.9); ALBUMIN 2.8 G/DL (3.5-5.0); ALKALINE PHOSPHATASE 187 U/L (45-117); GLOBULIN 5.7 G/DL (2.5-4.1)
[2017-02-25 06:07] LABS: BASOPHILS 0.3 %; BASOPHILS ABSOLUTE 0.03 10/3/uL (0.0-0.16); EOSINOPHILS 3.2 %; EOSINOPHILS ABSOLUTE 0.34 10/3/uL (0.0-0.53); HEMATOCRIT 24.4 % (36.0-48.0); HEMOGLOBIN 7.9 g/dL (12.0-16.0); IMMATURE GRANULOCYTES 0.3 %; IMMATURE GRANULOCYTES ABSOLUTE 0.03 10/3/uL (0.0-0.11); LYMPHOCYTES ABSOLUTE 1.37 10/3/uL (0.67-4.30); MANUAL DIFF NO %; MEAN CORPUS HGB CONC 32.4 g/dL (32.0-36.0); MEAN CORPUSCULAR HEMOGLOB 28.7 pg (26.0-34.0); MEAN CORPUSCULAR VOLUME 88.7 fL (80-100); MEAN PLATELET VOLUME 10.1 fL (9.2-13.0); MONOCYTES 9.6 %; MONOCYTES ABSOLUTE 1.01 10/3/uL (0.21-1.20); NEUTROPHILS 73.6 %; NEUTROPHILS ABSOLUTE 7.72 10/3/uL (2.02-8.40); PLATELET COUNT 192 10/3/uL (150-400); RBC DISTRIBUTION WIDTH 15.6 % (12.0-16.0); RED CELL COUNT 2.75 10/6/uL (4.0-5.6); WHITE BLOOD CELLS 10.5 10/3/uL (4.5-10.5)
[2017-02-25 06:24] LABS: A/G RATIO 0.5 (0.7-1.9); ALBUMIN 2.6 G/DL (3.5-5.0); CALCIUM, SERUM 8.9 MG/DL (8.5-10.4); CHLORIDE, SERUM 112 MMOL/L (96-112); CO2 (CARBON DIOXIDE) 28 MMOL/L (24-34); CREATININE 1.81 MG/DL (0.55-1.02); GFR AFRICAN AMERICAN 33 ML/MIN (>=60); GFR NON AFRICAN AMERICAN 28 ML/MIN (>=60); GLOBULIN 5.5 G/DL (2.5-4.1); POTASSIUM, SERUM 3.9 MMOL/L (3.5-5.3); SGOT(AST) 27 U/L (5-40); SGPT(ALT) 25 U/L (5-65); SODIUM, SERUM 148 MMOL/L (135-148); TOTAL BILIRUBIN 0.3 MG/DL (0-1.2); TOTAL PROTEIN 8.1 G/DL (6.0-8.5)
[2017-02-25 06:29] LABS: ALKALINE PHOSPHATASE 165 U/L (45-117); BUN (BLOOD UREA NITROGEN) 43 MG/DL (6-23); GLUCOSE, SERUM 85 MG/DL (60-99)
[2017-02-26 06:37] LABS: BASOPHILS 0.3 %; BASOPHILS ABSOLUTE 0.03 10/3/uL (0.0-0.16); EOSINOPHILS 3.5 %; EOSINOPHILS ABSOLUTE 0.37 10/3/uL (0.0-0.53); HEMOGLOBIN 8.2 g/dL (12.0-16.0); IMMATURE GRANULOCYTES 0.3 %; IMMATURE GRANULOCYTES ABSOLUTE 0.03 10/3/uL (0.0-0.11); LYMPHOCYTES 13.6 %; LYMPHOCYTES ABSOLUTE 1.45 10/3/uL (0.67-4.30); MEAN CORPUS HGB CONC 31.5 g/dL (32.0-36.0); MEAN CORPUSCULAR HEMOGLOB 28.2 pg (26.0-34.0); MEAN CORPUSCULAR VOLUME 89.3 fL (80-100); MEAN PLATELET VOLUME 10.1 fL (9.2-13.0); MONOCYTES 9.7 %; MONOCYTES ABSOLUTE 1.04 10/3/uL (0.21-1.20); NEUTROPHILS 72.6 %; NEUTROPHILS ABSOLUTE 7.76 10/3/uL (2.02-8.40); PLATELET COUNT 189 10/3/uL (150-400); RBC DISTRIBUTION WIDTH 15.4 % (12.0-16.0); RED CELL COUNT 2.91 10/6/uL (4.0-5.6); WHITE BLOOD CELLS 10.7 10/3/uL (4.5-10.5)
[2017-02-26 06:38] LABS: MANUAL DIFF NO %
[2017-02-26 06:49] LABS: A/G RATIO 0.6 (0.7-1.9); ALBUMIN 2.7 G/DL (3.5-5.0); CALCIUM, SERUM 8.8 MG/DL (8.5-10.4); CHLORIDE, SERUM 108 MMOL/L (96-112); CO2 (CARBON DIOXIDE) 30 MMOL/L (24-34); CREATININE 1.64 MG/DL (0.55-1.02); GFR AFRICAN AMERICAN 37 ML/MIN (>=60); GFR NON AFRICAN AMERICAN 32 ML/MIN (>=60); GLOBULIN 4.9 G/DL (2.5-4.1); GLUCOSE, SERUM 96 MG/DL (60-99); POTASSIUM, SERUM 3.6 MMOL/L (3.5-5.3); SGOT(AST) 30 U/L (5-40); SGPT(ALT) 24 U/L (5-65); SODIUM, SERUM 145 MMOL/L (135-148); TOTAL BILIRUBIN 0.7 MG/DL (0-1.2); TOTAL PROTEIN 7.6 G/DL (6.0-8.5)
[2017-02-26 06:52] LABS: ALKALINE PHOSPHATASE 142 U/L (45-117); BUN (BLOOD UREA NITROGEN) 37 MG/DL (6-23)
[2017-02-27 05:17] LABS: BUN (BLOOD UREA NITROGEN) 35 MG/DL (6-23); CALCIUM, SERUM 9.2 MG/DL (8.5-10.4); CHLORIDE, SERUM 107 MMOL/L (96-112); CO2 (CARBON DIOXIDE) 31 MMOL/L (24-34); CREATININE 1.66 MG/DL (0.55-1.02); GFR AFRICAN AMERICAN 37 ML/MIN (>=60); GFR NON AFRICAN AMERICAN 32 ML/MIN (>=60); GLUCOSE, SERUM 90 MG/DL (60-99); POTASSIUM, SERUM 3.7 MMOL/L (3.5-5.3); SODIUM, SERUM 145 MMOL/L (135-148)
[2017-02-27 05:19] LABS: ALKALINE PHOSPHATASE 172 U/L (45-117)
[2017-02-27] MEDS ORDERED: HYDROCHLOROT50 MG PO (13:27)
[2017-02-27] MEDS ORDERED: BUM5 PO (13:27)
[2017-02-27] MEDS ORDERED: BUM1 PO (13:28)
[2017-02-27] MEDS ORDERED: FLORASTOR250 MG PO (13:29)
[2017-02-27] MEDS ORDERED: VANCOCIN (13:29)
== END 2017-02-27 16:05 | disposition home health service (06) | DRG 371 ==
LOC: ER 19:28 → 2SO 20:39
PROVIDERS: Emergency Medicine; Hospitalist; Internal Medicine; Nurse Practitioner Family
DX: A04.7 Enterocolitis due to Clostridium difficile (principal); J18.9 Pneumonia, unspecified organism; N17.9 Acute kidney failure, unspecified; I13.0 Hypertensive heart and chronic kidney disease with heart failure and stage 1 through stage 4 chronic kidney disease, or unspecified chronic kidney disease; M32.9 Systemic lupus erythematosus, unspecified; I50.32 Chronic diastolic (congestive) heart failure; E66.2 Morbid (severe) obesity with alveolar hypoventilation; E87.1 Hypo-osmolality and hyponatremia; I69.354 Hemiplegia and hemiparesis following cerebral infarction affecting left non-dominant side; Z68.41 Body mass index [BMI] 40.0-44.9, adult; N18.3 Chronic kidney disease, stage 3 (moderate); R09.02 Hypoxemia; E11.9 Type 2 diabetes mellitus without complications; E78.5 Hyperlipidemia, unspecified; M06.9 Rheumatoid arthritis, unspecified; R26.9 Unspecified abnormalities of gait and mobility; Z96.653 Presence of artificial knee joint, bilateral; Z86.73 Personal history of transient ischemic attack (TIA), and cerebral infarction without residual deficits; Z98.890 Other specified postprocedural states; Z82.49 Family history of ischemic heart disease and other diseases of the circulatory system; Z88.2 Allergy status to sulfonamides; Z88.8 Allergy status to other drugs, medicaments and biological substances
CPT/HCPCS: 36415; 36600; 71010; 71020; 80048; 80053; 80061; 82805; 82962; 83036; 83735; 83880; 84075; 84443; 85025; 85610; 85730; 86850; 86900; 86901; 87040; 87493; 87493-59; 93005; 94640; 96374; 97161-GP; 99285; A9270-GY; G0463; J0456; J2405